=== PATIENT | male | born 1970 | race Caucasian/White ===

== ENCOUNTER 2023-04-08 11:49 | Emergency (ER) | payer MEDICAID ==
[~2023-04-08] VITALS: Ht 177.8 cm; Wt 93.4 kg
[2023-04-08 11:57] VITALS: BP_SYST 126
[2023-04-08 12:58] LABS: ANION GAP 11 (5-15); CALCIUM 8.4 mg/dL (8.4-11.0); CHLORIDE 101 mmol/L (98-107); CREATININE 0.97 mg/dL (0.55-1.30); GFR AFRICAN AMERICAN 104 mL/min (>90); GLUCOSE 90 mg/dL (70-99); UREA NITROGEN, BLOOD 14 mg/dL (8-21)
[2023-04-08 13:02] LABS: BASOPHILS % (AUTO) 0.3 % (0.0-2.0); EOSINOPHILS # (AUTO) 0.1 K/uL (0.0-0.4); EOSINOPHILS % (AUTO) 0.6 % (0.0-4.0); HEMATOCRIT 31.8 % (36-54); HEMOGLOBIN 9.5 g/dL (14.0-18.0); LYMPHOCYTES # (AUTO) 0.5 K/uL (1.0-5.5); LYMPHOCYTES % (AUTO) 4.6 % (20.5-51.5); MEAN CORPUSCULAR HEMOGLOBIN 18 pg (27-31); MEAN CORPUSCULAR HGB CONC 30 % (32-36); MEAN CORPUSCULAR VOLUME 62 fL (79.0-98.0); MONOCYTES # (AUTO) 0.9 K/uL (0.0-1.0); MONOCYTES % (AUTO) 7.3 % (1.7-9.3); NEUTROPHILS # (AUTO) 10.4 K/uL (1.8-7.7); NEUTROPHILS % (AUTO) 87.2 % (40.0-70.0); PLATELET COUNT (AUTO) 283 K/uL (130-430); RED BLOOD CELL COUNT(AUTO) 5.17 MIL/uL (4.2-6.2); RED CELL DISTRIBUTION WIDTH 22.3 % (9.0-15.0); WHITE BLOOD COUNT (AUTO) 11.9 K/uL (4.8-10.8)
[2023-04-08 13:11] LABS: ALANINE AMINOTRANSFERASE 27 U/L (12-78); ALBUMIN 3.5 g/dL (3.4-4.8); ASPARTATE AMINOTRANSFERASE 21 U/L (10-37); TOTAL BILIRUBIN 0.5 mg/dL (0.0-1.0)
[2023-04-08 13:28] LABS: ACETONE, SERUM NEGATIVE (NEGATIVE)
[2023-04-08 13:31] LABS: C-REACTIVE PROTEIN QUANT 26.6 mg/dL (0-0.5)
[2023-04-08] MEDS ORDERED: CLIN-142 PO (13:33)
[2023-04-08] MEDS ORDERED: FERR236T3 PO (13:36)
[2023-04-08] MEDS ORDERED: ACET-2634 PO (13:41)
[2023-04-08 13:52] VITALS: BP_SYST 138
== END 2023-04-08 13:43 | disposition home or self-care (01) ==
LOC: SED 11:49
DX: L03.115 Cellulitis of right lower limb (principal); D64.9 Anemia, unspecified
CPT/HCPCS: 36415; 73590-TC; 80053; 82009; 83605; 85025; 86140; 93971; 99284